=== PATIENT | female | born 1970 | race African-American/Black ===

== ENCOUNTER 2016-10-15 10:15 | Day surgery (SDC) | payer BC ==
[2016-10-15] MEDS ORDERED: D5 LR 1000 ML 1,000 ML IV ONE (10:27)
[2016-10-15] MEDS ORDERED: DIPRIVAN VIAL 20 ML ONE (11:43)
[2016-10-15] MEDS ORDERED: DIPRIVAN VIAL 10 ML ONE (11:50)
[2016-10-15 14:56] VITALS: BP 190/90
== END 2016-10-15 12:15 | disposition home or self-care (01) ==
LOC: SURG1 10:15
PROVIDERS: ATTEND Internal Medicine Gastroenterology
PROC: 0DB68ZX Excision of Stomach, Via Natural or Artificial Opening Endoscopic, Diagnostic (ICD-10-PCS; principal; 2016-10-15 14:15)
PROC: 0DJ08ZZ Inspection of Upper Intestinal Tract, Via Natural or Artificial Opening Endoscopic (ICD-10-PCS; principal; 2016-10-15 14:15)
PROC: 0DB88ZX Excision of Small Intestine, Via Natural or Artificial Opening Endoscopic, Diagnostic (ICD-10-PCS; principal; 2016-10-15 14:15)
PROC: 0D757ZZ Dilation of Esophagus, Via Natural or Artificial Opening (ICD-10-PCS; principal; 2016-10-15 14:15)
DX: R13.19 Other dysphagia (principal); R10.13 Epigastric pain; K21.9 Gastro-esophageal reflux disease without esophagitis; R11.0 Nausea; K20.8 Other esophagitis; K22.4 Dyskinesia of esophagus; K22.2 Esophageal obstruction; K25.9 Gastric ulcer, unspecified as acute or chronic, without hemorrhage or perforation; K29.60 Other gastritis without bleeding; D50.8 Other iron deficiency anemias
CPT/HCPCS: A4217; J3490; J7120

== ENCOUNTER 2017-02-25 11:37 | Day surgery (SDC) | payer BC ==
[~2017-02-25 11:37] MED LIST: D5 LR 1000 ML 1,000 ML IV ONE
[2017-02-25] MEDS ORDERED: DIPRIVAN VIAL 20 ML ONE (12:42)
[2017-02-25 13:14] VITALS: BP 190/110
== END 2017-02-25 13:15 | disposition home or self-care (01) ==
LOC: SURG1 11:37
PROVIDERS: ATTEND Internal Medicine Gastroenterology
PROC: 0DJ08ZZ Inspection of Upper Intestinal Tract, Via Natural or Artificial Opening Endoscopic (ICD-10-PCS; principal; 2017-02-25 15:00)
PROC: 0D757ZZ Dilation of Esophagus, Via Natural or Artificial Opening (ICD-10-PCS; principal; 2017-02-25 15:00)
PROC: 0DB68ZX Excision of Stomach, Via Natural or Artificial Opening Endoscopic, Diagnostic (ICD-10-PCS; principal; 2017-02-25 15:00)
DX: R10.13 Epigastric pain (principal); R13.19 Other dysphagia; K25.9 Gastric ulcer, unspecified as acute or chronic, without hemorrhage or perforation; K20.8 Other esophagitis; K22.4 Dyskinesia of esophagus; K22.2 Esophageal obstruction; K29.60 Other gastritis without bleeding; B96.81 Helicobacter pylori [H. pylori] as the cause of diseases classified elsewhere
CPT/HCPCS: A4217; J3490; J7120